=== PATIENT | female | born 2000 | race Caucasian/White ===

== ENCOUNTER 2025-06-14 18:07 | Emergency (ER) | payer SELFPAY ==
[~2025-06-14] VITALS: Ht 157.5 cm; Wt 106.2 kg
[2025-06-14] MEDS ORDERED: LEXA1TAB PO (18:18)
[2025-06-14 20:20] LABS: BASO # 0.1 10^3/uL (0.0-0.2); BASO % 0.5 % (0.0-1.0); EOS # 0.2 10^3/uL (0.0-0.5); EOS % 2.5 % (0.0-3.0); LYMPH # 2.3 10^3/uL (1.5-5.0); LYMPH % 24.2 % (24.0-44.0); MONO # 0.6 10^3/uL (0.0-0.8); MONO % 6.5 % (2.0-8.0); NEUTROPHILS # 6.2 10^3/uL (1.5-8.5); NEUTROPHILS % 66.0 % (36.0-66.0); PLATELET COUNT, AUTOMATED 280 10^3/uL (150-450)
[2025-06-14 20:28] LABS: CALCIUM LEVEL 8.8 MG/DL (8.5-10.1); CARBON DIOXIDE LEVEL 23 MMOL/L (20-31); CHLORIDE LEVEL 109 MMOL/L (98-107); CREATININE FOR GFR 0.69 MG/DL (0.55-1.30); GLOMERULAR FILTRATION RATE > 90.0 (>60); POTASSIUM SERUM 3.9 MMOL/L (3.5-5.1); SODIUM LEVEL 142 MMOL/L (136-145)
[2025-06-14 20:30] LABS: KETONE, URINE AUTO RFX NEGATIVE (NEGATIVE); NITRITE, URINE AUTO RFX NEGATIVE (NEGATIVE); RBC, URINE AUTO RFX TNTC /HPF (0-3); SQUAM EPITHELIAL CELL UR AURFX 2 /HPF (0-6)
[2025-06-14 20:31] LABS: LEUKOCYTE ESTERASE UR AUTO RFX TRACE (NEGATIVE); WBC, URINE AUTO RFX 20 /HPF (0-3)
[2025-06-14 21:25] LABS: HCG, SERUM QUANTITATIVE < 2.6 MIU/ML (<4.2)
[2025-06-14] MEDS: ACETAMINOPHEN 500 MG TAB PO ONE (22:08)
[2025-06-14] MEDS: KETOROLAC 60 MG/2 ML VIAL IM ONE (22:10)
[2025-06-14] MEDS: MORPHINE 10 MG/ML 1 ML VIAL IM ONE (22:43)
[2025-06-14] MEDS ORDERED: HYDR-3715 PO (23:07)
[2025-06-14 23:17] VITALS: BP 125/75; TEMP 96.7; O2SAT 98
== END 2025-06-14 23:19 | disposition home or self-care (01) ==
LOC: M ED 18:07
DX: O20.0 Threatened abortion (principal); Z87.59 Personal history of other complications of pregnancy, childbirth and the puerperium; O99.330 Smoking (tobacco) complicating pregnancy, unspecified trimester; F17.290 Nicotine dependence, other tobacco product, uncomplicated; O99.891 Other specified diseases and conditions complicating pregnancy; O99.340 Other mental disorders complicating pregnancy, unspecified trimester; F32.A Depression, unspecified; Z88.0 Allergy status to penicillin; Z3A.00 Weeks of gestation of pregnancy not specified
CPT/HCPCS: 80048; 81001; 84702; 85025; 86850; 86900; 86901; 87086; 96372; 99283; J1885